=== PATIENT | male | born 1990 | race Caucasian/White ===

== ENCOUNTER 2022-12-07 17:12 | Emergency (ER) | payer SELFPAY ==
[~2022-12-07] VITALS: Ht 165.1 cm; Wt 61.0 kg
[2022-12-07 17:18] VITALS: BP 107/59
[2022-12-07] MEDS ORDERED: TETANUS, DIPHTHERIA, PERTUSSIS VAC/PF 0.5ML (>10YR OLD) IM ONE (18:45)
[2022-12-07] MEDS ORDERED: BO1 TP (19:11)
== END 2022-12-07 19:23 | disposition home or self-care (01) ==
LOC: ER 17:12
DX: S01.511A Laceration without foreign body of lip, initial encounter (principal); Y08.89XA Assault by other specified means, initial encounter; Y93.89 Activity, other specified; Y92.89 Other specified places as the place of occurrence of the external cause; Y99.8 Other external cause status
CPT/HCPCS: 90471; 90715; 99283